=== PATIENT | female | born 1965 | race Caucasian/White ===

== ENCOUNTER 2017-09-30 11:32 | Outpatient (CLI) | payer OTHER | END 2017-10-03 16:26 | disposition home or self-care (01) | LOC: SONOGRAMA 11:32 | DX: M25.511 Pain in right shoulder (principal) ==

== ENCOUNTER 2018-04-08 09:02 | Outpatient (CLI) | payer OTHER | END 2018-04-08 09:23 | disposition home or self-care (01) | LOC: TOM 09:02 | DX: R10.31 Right lower quadrant pain (principal) ==

== ENCOUNTER 2022-07-03 08:30 | Outpatient (CLI) | payer OTHER | END 2022-07-03 08:33 | disposition home or self-care (01) | LOC: NUCLEAR 08:30 | PROVIDERS: ATTEND Podiatrist Foot Surgery | DX: I82.401 Acute embolism and thrombosis of unspecified deep veins of right lower extremity (principal); I87.9 Disorder of vein, unspecified ==

== ENCOUNTER 2023-05-23 06:15 | Day surgery (SDC) | payer OTHER ==
[~2023-05-23] VITALS: Ht 165.1 cm; Wt 61.2 kg
[~2023-05-23 06:15] MED LIST: IRON236 MG PO; LOSARTAN-HCTZ1 EACH PO; MAGESTROL PO
[2023-05-23] MEDS ORDERED: MORGIDOX100 MG PO (11:50)
[2023-05-23] MEDS ORDERED: IBU600 MG PO (11:52)
== END 2023-05-23 15:15 | disposition home or self-care (01) ==
LOC: CIR.AMB 06:15
PROVIDERS: ATTEND Obstetrics & Gynecology
DX: N84.0 Polyp of corpus uteri (principal); N95.0 Postmenopausal bleeding; D25.0 Submucous leiomyoma of uterus; Z20.822 Contact with and (suspected) exposure to COVID-19

== ENCOUNTER 2023-12-16 15:07 | Outpatient (CLI) | payer OTHER ==
[~2023-12-16 15:07] MED LIST changes: +IBU600 MG PO; +MORGIDOX100 MG PO
== END 2023-12-16 15:09 | disposition home or self-care (01) ==
LOC: MAMO-SONO 15:07
PROVIDERS: ATTEND Obstetrics & Gynecology
DX: Z12.31 Encounter for screening mammogram for malignant neoplasm of breast (principal)

== ENCOUNTER 2024-12-28 11:38 | Outpatient (CLI) | payer OTHER | END 2024-12-28 11:39 | disposition home or self-care (01) | LOC: NUCLEAR 11:38 | PROVIDERS: ATTEND Obstetrics & Gynecology | DX: M81.0 Age-related osteoporosis without current pathological fracture (principal) ==

== ENCOUNTER 2024-12-28 14:32 | Outpatient (CLI) | payer OTHER | END 2024-12-28 14:39 | disposition home or self-care (01) | LOC: MAMO-SONO 14:32 | PROVIDERS: ATTEND Obstetrics & Gynecology | DX: N63.0 Unspecified lump in unspecified breast (principal); N64.4 Mastodynia; Z12.31 Encounter for screening mammogram for malignant neoplasm of breast ==

== ENCOUNTER 2025-03-15 11:46 | Outpatient (CLI) | payer OTHER | END 2025-03-15 11:50 | disposition home or self-care (01) | LOC: SONOGRAMA 11:46 | DX: E04.1 Nontoxic single thyroid nodule (principal) ==